=== PATIENT | male | born 1965 | race Caucasian/White ===

== ENCOUNTER 2018-02-26 12:55 | Emergency (ER) | payer SELFPAY ==
[~2018-02-26] VITALS: Ht 172.7 cm; Wt 75.0 kg
[~2018-02-26 12:55] MED LIST: FLEXERIL OR; FLEXERIL10 MG PO; HYDROXYZ HCL25 MG PO; MEDDOSEPAK PO; NAPROXEN500 MG PO; NO; TRAMADOL HCL50 MG PO; ULTRAM50 M1 PO
[2018-02-26 13:50] LABS: HEMOGLOBIN 12.8 g/dl (14.0-18.0); IMMATURE GRANULOCYTES 0.4 % (0.0-5.0); MEAN CORPUSCULAR HGB 32.5 pG CALC (26.0-32.0); MEAN CORPUSCULAR HGB CONC 32.8 g/L CALC (32.0-36.0); NEUT# 8.34 thou/uL (1.82-7.42); RED BLOOD COUNT 3.94 mill/uL (4.70-6.10); RED CELL DISTRI WIDTH 13.1 % (11.5-15.5)
[2018-02-26 13:59] LABS: URINE BLOOD DIPSTICK NEGATIVE (NEGATIVE); URINE COLOR YELLOW; URINE GLUCOSE - DIPSTICK NEGATIVE (NEGATIVE); URINE KETONE TRACE mg/dL (NEGATIVE); URINE LEUK ESTERASE NEGATIVE (NEGATIVE); URINE NITRITE - DIPSTICK NEGATIVE (Negative); URINE PH 6.5 (4.5-8.0); URINE PROTEIN - DIPSTICK NEGATIVE (NEG-TRACE); URINE SPECIFIC GRAVITY 1.015
[2018-02-26 14:15] LABS: ALKALINE PHOSPHATASE 56 u/l (38-126); BILIRUBIN, TOTAL 1.6 mg/dL (0.0-1.4); BUN 12 mg/dL (9-20); BUN/CREATININE RATIO 17 (12-20 (CALC)); CARBON DIOXIDE 25 mmol/l (22-30); CHLORIDE 100 mmol/l (95-108); CREATININE 0.7 mg/dL (0.7-1.3); GFR > 60 ML/MIN (>=60 (CALC)); GFR FOR AFR.AMER. > 60 ML/MIN (>=60 (CALC)); LIPASE 131 u/l (23-300); SODIUM 138 mmol/l (137-146); TOTAL PROTEIN 6.9 g/dL (6.3-8.2)
[2018-02-26 14:16] LABS: ANION GAP 17 (6-22 (CALC)); POTASSIUM 4.3 mmol/l (3.5-5.1); SGOT/AST 35 u/l (17-59)
[2018-02-26 14:42] LABS: URINE BILIRUBIN - DIPSTICK SMALL (NEGATIVE)
[2018-02-26] MEDS ORDERED: MOTRIN400 MG PO (15:58)
[2018-02-26] MEDS ORDERED: CYCLOBENZAPR5 MG PO (15:58)
[2018-02-26 16:14] VITALS: BP 124/84
== END 2018-02-26 16:24 | disposition home or self-care (01) | DRG 552 ==
LOC: ED 12:55
PROVIDERS: Family Medicine
DX: M54.5 Low back pain (principal); S39.012A Strain of muscle, fascia and tendon of lower back, initial encounter; R10.11 Right upper quadrant pain; R10.31 Right lower quadrant pain; R11.0 Nausea; R50.9 Fever, unspecified; Y93.55 Activity, bike riding; Y92.414 Local residential or business street as the place of occurrence of the external cause
CPT/HCPCS: Q9967

== ENCOUNTER 2018-11-21 11:33 | Emergency (ER) | payer OTHER ==
[~2018-11-21] VITALS: Ht 172.7 cm; Wt 60.0 kg
[~2018-11-21 11:33] MED LIST changes: +CYCLOBENZAPR5 MG PO; +MOTRIN400 MG PO
[2018-11-21 12:35] VITALS: BP 180/77
== END 2018-11-21 12:32 | DRG 563 ==
LOC: ED 11:33
DX: S43.401A Unspecified sprain of right shoulder joint, initial encounter (principal); Y35.813A Legal intervention involving manhandling, suspect injured, initial encounter; Y93.89 Activity, other specified; Y92.238 Other place in hospital as the place of occurrence of the external cause